=== PATIENT | female | born 1995 | race American Indian/Alaskan Native ===

== ENCOUNTER 2024-12-23 08:02 | Inpatient (IN) | payer BC ==
[~2024-12-23 08:02] MED LIST: Lidocaine 1.5% with EPINEPHrine 1:200,000 5 ML Amp ONE
[2024-12-23] MEDS ORDERED: Nalbuphine 10 MG/1 ML Vial IVPUSH PRN (08:16)
[2024-12-23] MEDS ORDERED: Ondansetron 4 MG/2 ML SDV IVPUSH PRN (08:16)
[2024-12-23 08:48] LABS: BASOPHILS PERCENT AUTO 0.1 % (0.0-1.0); EOSINOPHILS ABSOLUTE AUTO 0.1 K/mm3 (0.0-0.4); EOSINOPHILS PERCENT AUTO 0.8 % (0.0-6.0); HEMATOCRIT 36.2 % (37.0-47.0); HEMOGLOBIN 12.1 gm/dl (12.0-16.0); IMMATURE GRAN ABSOLUTE AUTO 0.09 K/mm3 (0.00-0.05); LYMPHOCYTES ABSOLUTE AUTO 1.6 K/mm3 (1.0-4.8); MEAN CORPUSCULAR HGB CONC 33.4 g/dl (32.0-36.0); MEAN CORPUSCULAR VOLUME 89.8 fl (83.0-99.0); MEAN PLATELET VOLUME 11.6 fl (9.4-12.3); MONOCYTES ABSOLUTE AUTO 0.7 K/mm3 (0.0-0.8); MONOCYTES PERCENT AUTO 7.9 % (0.0-8.0); NEUTROPHILS ABSOLUTE AUTO 6.1 K/mm3 (1.8-7.7); NEUTROPHILS PERCENT AUTO 71.2 % (41.0-71.0); PLATELET COUNT,PLT 225 K/mm3 (150-400); RED BLOOD CELL COUNT 4.03 M/mm3 (4.10-5.30); WHITE BLOOD CELL COUNT,WBC 8.58 K/mm3 (3.9-11.3)
[2024-12-23] MEDS: Misoprostol 25 MCG (1/4 of 100 MCG) Tab VAG ONE (09:01)
[2024-12-23] MEDS ORDERED: diphenhydrAMINE 50 MG/ML SDV IVPUSH PRN (10:46)
[2024-12-23] MEDS ORDERED: ePHEDrine 50 MG/ML SDV IVPUSH PRN (10:46)
[2024-12-23] MEDS: Misoprostol 25 MCG (1/4 of 100 MCG) Tab VAG PRN (13:08)
[2024-12-23] MEDS: Oxytocin/0.9 % Sodium Chloride 30 UNIT/500 ML BAG IV SCH (20:44)
[2024-12-23] MEDS: Lactated Ringers 1,000 ML IV SCH (20:45)
[2024-12-24] MEDS: Bupivacaine/fentaNYL/NS 100 ML Bag EPIDUR PRN (03:55)
[2024-12-24] MEDS: Oxytocin/0.9 % Sodium Chloride 30 UNIT/500 ML BAG IV SCH (12:04)
[2024-12-24] MEDS: Lidocaine 1% 50 ML MDV INJECT PRN (12:10)
[2024-12-24] MEDS ORDERED: Docusate Sodium 100 MG Cap PO PRN (14:32)
[2024-12-24] MEDS: Witch Hazel Medicated Pads 40/Jar TOP PRN (14:39)
[2024-12-24] MEDS: Benzocaine/Menthol 20%-0.5% Spray 78 GM Cannister TOP PRN (14:39)
[2024-12-24] MEDS: Tranexamic Acid 1,000 MG/10 ML Vial ONE (17:32)
[2024-12-24] MEDS: Ibuprofen 600 MG Tab PO SCH (20:03)
[2024-12-24] MEDS: Acetaminophen 325 MG Tab PO PRN (23:53)
[2024-12-25 06:14] LABS: HEMATOCRIT 32.2 % (37.0-47.0); HEMOGLOBIN 10.7 gm/dl (12.0-16.0); MEAN CORPUSCULAR HEMOGLOBIN 29.9 pg (28.0-32.0); MEAN CORPUSCULAR HGB CONC 33.2 g/dl (32.0-36.0); MEAN CORPUSCULAR VOLUME 89.9 fl (83.0-99.0); MEAN PLATELET VOLUME 11.2 fl (9.4-12.3); PLATELET COUNT,PLT 197 K/mm3 (150-400); RED BLOOD CELL COUNT 3.58 M/mm3 (4.10-5.30); WHITE BLOOD CELL COUNT,WBC 14.58 K/mm3 (3.9-11.3)
[2024-12-25] MEDS: Ferrous Sulfate 324 MG Tab.EC PO SCH (09:15)
[2024-12-25] MEDS: Prenatal Multivitamin with Calcium/Folic Acid/Iron Tab PO SCH (09:16)
[2024-12-25] MEDS: Ibuprofen 600 MG Tab PO SCH (15:17)
== END 2024-12-26 21:40 | disposition home or self-care (01) | DRG 560 ==
LOC: JD.OB 08:02 → OBSVTOIN 12-24 11:45 → JD.OB 12-24 11:46
PROVIDERS: ADMIT Family Medicine; ATTEND Family Medicine
PROC: 3E0R3BZ Introduction of Anesthetic Agent into Spinal Canal, Percutaneous Approach (ICD-10-PCS; principal; 2024-12-24)
PROC: 10907ZC Drainage of Amniotic Fluid, Therapeutic from Products of Conception, Via Natural or Artificial Opening (ICD-10-PCS; principal; 2024-12-24)
PROC: 3E0DXGC Introduction of Other Therapeutic Substance into Mouth and Pharynx, External Approach (ICD-10-PCS; principal; 2024-12-24)
PROC: 10E0XZZ Delivery of Products of Conception, External Approach (ICD-10-PCS; principal; 2024-12-24)
PROC: 0UQMXZZ Repair Vulva, External Approach (ICD-10-PCS; principal; 2024-12-24)
PROC: 3E033VJ Introduction of Other Hormone into Peripheral Vein, Percutaneous Approach (ICD-10-PCS; principal; 2024-12-24)
DX: O14.94 Unspecified pre-eclampsia, complicating childbirth (principal); Z3A.37 37 weeks gestation of pregnancy; Z37.0 Single live birth; Z79.899 Other long term (current) drug therapy; O70.0 First degree perineal laceration during delivery
CPT/HCPCS: 36415; 51702; 59025; 59409; 85025; 85027; 86592; 86850; 86900; 86901; A9270-GY; J2003; J3490; J7120; J7999